=== PATIENT | female | born 1990 | race Caucasian/White ===

== ENCOUNTER → 2017-05-07 15:44 | Outpatient (CLI) | payer MEDICAID, SELFPAY ==
[2017-05-07 18:03] LABS: Absolute Lymphocyte Count 2.34 X10^3/ul (0.83-4.51); Absolute Neutrophil Count 7.7 X10^3/uL (2.0-7.7); Basophil# 0.02 X10^3/uL; Basophil% 0.2 % (0-1); Eosinophil# 0.08 X10^3/uL; Eosinophils% 0.7 % (0-5); Hematocrit 36.6 % (37-47); Hemoglobin 12.4 g/dl (12.0-15.0); Lymphocyte # 2.34 X10^3/ul (4.0); Lymphocyte % 21.2 % (19-41); Mean Corp Hgb Conc 33.9 g/gl (32-36); Mean Corpuscular Hgb 30.4 pg (27.0-32.0); Mean Corpuscular Volume 89.7 fL (81-99); Mean Platelet Vol. 10.7 fl (6.2-12.0); Monocyte# 0.86 X10^3/uL; Monocyte% 7.8 % (0-10); Neutrophil # 7.72 X10^3/uL (2.7-7.7); Neutrophil % 69.7 % (47-70); POSITIVE COUNT NO; POSITIVE DIFFERENTIAL NO; POSITIVE MORPHOLOGY NO; Platelet Count 238 K/mm3 (150-450); RBC Distribution Width CV 12.8 % (11.6-14.6); RBC Distribution Width SD 41.6 fl (35.1-43.9); Red Blood Count 4.08 M/mm3 (4.2-5.4); White Blood Count 11.1 K/mm3 (4.4-11.0)
[2017-05-07 18:39] LABS: Color, Urine Yellow (Yellow); Glucose, Dipstick Normal (Normal); Ketone-Dipstick Negative (Negative); Leukocyte Esterase-Dipstick 25 /ul (Negative); Nitrite-Dipstick Negative (Negative); Occult Blood-Urine 10 /ul (Negative); Protein-Dipstick Negative (Negative); Specific Gravity, Urine 1.015 (1.002-1.030); Urine Bilirubin Dipstick Negative (Negative); Urine Clarity Clear (Clear); Urine Urobilinogen Normal (Normal)
[2017-05-07 19:05] LABS: Thyroid Stim Hormone (TSH) 1.45 uIU/mL (0.358-3.74)
[2017-05-07 19:32] LABS: COTININE Drug Screen Positive (<200 ng/mL)
[2017-05-07 19:50] LABS: HIV - WCH Non-Reactive (Nonreactive); Rubella IgG 499.6 IU/mL
[2017-05-07 20:25] LABS: Chlamydia Trachomatis by PCR Negative (Negative); Neisserai gonorrhoeae by PCR Negative (Negative); Probe Check PASS; Sample Adequacy Control PASS; Specimen Processing Control PASS
[2017-05-07 20:43] LABS: Amphetamine Urine VISTA NEGATIVE (<1000 ng/mL); Barbiturate Urine VISTA NEGATIVE (< 200 ng/mL); Benzodiazepine Urine VISTA NEGATIVE (< 200 ng/mL); Cocaine Urine VISTA NEGATIVE (< 300 ng/mL); Ecstacy Urine VISTA NEGATIVE (< 500 ng/mL); Methadone Urine VISTA NEGATIVE (< 300 ng/mL); PCP Urine VISTA NEGATIVE (< 25 ng/mL); THC Urine VISTA NEGATIVE (< 50 ng/mL); Vista UDS pH Range 6
[2017-05-09 10:20] LABS: HEPATITIS B SURFACE AG Negative (Negative); Hep C Antibodies <0.1 s/co ratio (0.0-0.9)
[2017-05-11 01:51] LABS: Prenatal RPR NONREACTIVE (NONREACTIVE)
[2017-05-13 15:33] LABS: HPV Reflexed? NOT INDICATED
== END ==
PROVIDERS: Visit Provider Obstetrics & Gynecology
DX: Z34.82 Encounter for supervision of other normal pregnancy, second trimester (principal); Z12.4 Encounter for screening for malignant neoplasm of cervix; Z11.3 Encounter for screening for infections with a predominantly sexual mode of transmission
CPT/HCPCS: 36415; 80307; 81002; 84443; 85025; 86703; 86762; 86803; 86850; 87340; 87491; 87591; 88175; G0145

== ENCOUNTER → 2017-05-23 15:49 | Outpatient (CLI) | payer MEDICAID, SELFPAY ==
[2017-05-23 17:19] LABS: Hematocrit 35.1 % (37-47); Hemoglobin 12.3 g/dl (12.0-15.0); Mean Corpuscular Hgb 31.4 pg (27.0-32.0); Mean Corpuscular Volume 89.5 fL (81-99); Mean Platelet Vol. 10.7 fl (6.2-12.0); Platelet Count 243 K/mm3 (150-450); RBC Distribution Width CV 12.6 % (11.6-14.6); RBC Distribution Width SD 41.1 fl (35.1-43.9); Red Blood Count 3.92 M/mm3 (4.2-5.4); White Blood Count 12.2 K/mm3 (4.4-11.0)
[2017-05-23 17:20] LABS: Scan Indicated on CBC? Y/N NO
[2017-05-23 17:30] LABS: Glucose Challenge Gest 1H 50g 90 mg/dL (70-140)
== END ==
PROVIDERS: Visit Provider Obstetrics & Gynecology
DX: Z34.83 Encounter for supervision of other normal pregnancy, third trimester (principal)
CPT/HCPCS: 36415; 82950; 85027; 86850

== ENCOUNTER → 2017-06-18 17:34 | Outpatient (CLI) | payer MEDICAID, SELFPAY ==
[2017-06-18 23:57] LABS: Group B Strep DNA By PCR Negative (Negative); Internal Control PASS; Probe Check PASS; Specimen Processing Control PASS
== END ==
PROVIDERS: Visit Provider Obstetrics & Gynecology
DX: Z36.85 Encounter for antenatal screening for Streptococcus B (principal)
CPT/HCPCS: 87081; 87653

== ENCOUNTER 2017-07-13 21:30 | Inpatient (IN) | payer MEDICAID, SELFPAY ==
[2017-07-13] MEDS: Oxytocin 10 UNITS/ML Vial IM (21:35)
--- NOTE | 2017-07-13 21:47 | PCM.OB.VAG ---
Vaginal Delivery Maternal Presentation: Active Labor 39 5/7 wk EGA Amniotic Membrane Rupture Type: Spontaneous at home Final LADARIUS: 07/15/17 - Late PNC @ 32 wk Final LADARIUS Source: LMP Gestational age: 39 Weeks and 5 Days Date of Procedure: 07/13/17 Pre-Operative Diagnosis: 39 5/7 wk precipitous labor Post-Operative Diagnosis: Same Surgery/ Procedure Performed: Spontaneous Vaginal Delivery Type of Anesthesia: None Description of Procedure: Pt presents complete and pushing. Buttocks at introitus R sacrum posterior. Maternal expulsive efforts resulted in delivery of to knees. Legs reduced. Shoulders/arms reduced and vtx then delivered by maintaining flexion of neck. End stage mec noted. Cord clamped x two and cut Infant to ball racker , Dr. Cavanaugh, present for delivery. Baby with spont cry. Ap 11/30. Routine cord gases collected, and cord blood for typing. (Pt Rh Neg) PP exam; Abrasion at R anterior labia. No lacerations, no repair required. IM pitocin given. Placenta delivered by spont expulsion. 3V cord, normal appearing, intact with trailing membranes. EBL 200 cc Presentation: Complete Breech Placental Delivery Description: Spontaneous Placenta Disposition: [facility] Cord Vessel Description: 3 Vessels Cord Gases drawn per routine: ABG Cord Entanglement: None Estimated Blood Loss: 200 Infant A gender: Male (1 minute): 9 (5 minute): 9 Episiotomy Description: None Laceration: None Medications given after delivery: - - IM pitocin given. Complications: None
[2017-07-13 21:51] VITALS: BMI 28.8
--- NOTE | 2017-07-13 21:55 | OP.PCM_ITS ---
Vaginal Delivery Maternal Presentation: Active Labor 39 5/7 wk EGA Amniotic Membrane Rupture Type: Spontaneous at home Final LADARIUS: 07/15/17 - Late PNC @ 32 wk Final LADARIUS Source: LMP Gestational age: 39 Weeks and 5 Days Date of Procedure: 07/13/17 Pre-Operative Diagnosis: 39 5/7 wk precipitous labor Post-Operative Diagnosis: Same Surgery/ Procedure Performed: Spontaneous Vaginal Delivery Type of Anesthesia: None Description of Procedure: Pt presents complete and pushing. Buttocks at introitus R sacrum posterior. Maternal expulsive efforts resulted in delivery of to knees. Legs reduced. Shoulders/arms reduced and vtx then delivered by maintaining flexion of neck. End stage mec noted. Cord clamped x two and cut Infant to supervising fire marshal , Dr. Cavanaugh, present for delivery. Baby with spont cry. Ap 11/30. Routine cord gases collected, and cord blood for typing. (Pt Rh Neg) PP exam; Abrasion at R anterior labia. No lacerations, no repair required. IM pitocin given. Placenta delivered by spont expulsion. 3V cord, normal appearing, intact with trailing membranes. EBL 200 cc Presentation: Complete Breech Placental Delivery Description: Spontaneous Placenta Disposition: [facility] Cord Vessel Description: 3 Vessels Cord Gases drawn per routine: ABG Cord Entanglement: None Estimated Blood Loss: 200 Infant A gender: Male (1 minute): 9 (5 minute): 9 Episiotomy Description: None Laceration: None Medications given after delivery: - - IM pitocin given. Complications: None
--- NOTE | 2017-07-13 21:56 | DCINST_ITS ---
Discharge Diet: No Restrictions Discharge Activity: May not drive while taking narcotic pain medications., May Shower, May Take a Tub Bath Return to work on:: 08/25/17 May resume sexual activity in: 4-6 weeks Additional Activity Instructions:: Nothing in the vagina for 4-6 weeks. You may return to work/school in 6 weeks. Additional Instructions: If you experience any of the following, contact your healthcare provider. * Bleeding that soaks a pad every hour for 2 hours * Fever 100.4 or higher * Unrelieved abdominal pain * Problems urinating (including inability to urinate or burning while urinating) . * Visual changes * Severe headache * Flu-like symptoms * Pain or redness in one of both of your breasts * Pain, warmth, tenderness or swelling in your legs, especially the calf area * Frequent nausea and vomiting * Symptoms of depression or anxiety If you experience any of the following, call 911 or go to the nearest Emergency Room. * Chest pain * Problems breathing * Seizure activity * Partial or complete paralysis of a body part, slurred speech, weakness or drooping of the face, or a sudden inability to walk or hold your balance Allergies/Adverse Reactions: Allergies No Known Allergies Allergy (Verified 07/13/17 21:54) Medications to take at Discharge Oxycodone [Oxyir] 5 mg PO Q6H PRN PRN #15 tablet 04/22/14 Hydrocodone/Acetaminophen [Hydrocodon-Acetaminophen 5-325] Q6H PRN PRN 04/23/14 Orders to be completed after discharge: Electric breast pump Time Frame: 1 Year, Location: None Selected Please Follow Up With: Esa Reid MD - [phone] When: Call to make an appointment with your doctor in 6 weeks. Proposed Discharge Date: 07/15/17
[2017-07-13 22:36] LABS: Hematocrit 38.3 % (37-47); Hemoglobin 13.2 g/dl (12.0-15.0); Mean Corp Hgb Conc 34.5 g/gl (32-36); Mean Corpuscular Hgb 31.6 pg (27.0-32.0); Mean Corpuscular Volume 91.6 fL (81-99); Mean Platelet Vol. 10.7 fl (6.2-12.0); Platelet Count 236 K/mm3 (150-450); RBC Distribution Width CV 13.5 % (11.6-14.6); RBC Distribution Width SD 44.5 fl (35.1-43.9); Red Blood Count 4.18 M/mm3 (4.2-5.4); White Blood Count 23.5 K/mm3 (4.4-11.0)
[2017-07-13 22:37] LABS: Scan Indicated on CBC? Y/N NO
[2017-07-13] MEDS: Ibuprofen 600 MG Tablet PO (23:29)
[2017-07-14 01:36] LABS: Vista UDS pH Range 6
[2017-07-14 01:47] LABS: Amphetamine Urine VISTA NEGATIVE (<1000 ng/mL); Barbiturate Urine VISTA NEGATIVE (< 200 ng/mL); Benzodiazepine Urine VISTA NEGATIVE (< 200 ng/mL); Cocaine Urine VISTA NEGATIVE (< 300 ng/mL); Ecstacy Urine VISTA NEGATIVE (< 500 ng/mL); Methadone Urine VISTA NEGATIVE (< 300 ng/mL); PCP Urine VISTA NEGATIVE (< 25 ng/mL); THC Urine VISTA NEGATIVE (< 50 ng/mL)
[2017-07-14 04:42] VITALS: BP 118/65; PULSE 85; RESP 16; TEMP 36.7; O2SAT 97
--- NOTE | 2017-07-14 07:46 | PCM.PN.OB ---
Subjective: PPD#1 Breech vaginal delivery Doing well. Minimal pain, but is coming back. Hasn't taken anything recently for pain. Plans to bottle feed. Had planned to adopt baby out (private adoption) but now plans to keep baby. baby has had some issues with blood sugars. Objective: Lying in bed semirecumbent. Bottle feeding baby boy 6# 1 oz. wt per pt. - Physical Exam General: Alert, Oriented x3, Cooperative, No apparent distress HEENT: Atraumatic, EOMI Neck: Supple Abdomen: Soft, Non Tender Psych/Mental Status: Normal Affect Vital Signs Temp Pulse Resp BP Pulse Ox 98.1 F 85 16 118/65 97 07/14/17 04:42 07/14/17 04:42 07/14/17 04:42 07/14/17 04:42 07/14/17 04:42 Weight: 83.461 kg Body Mass Index (BMI) 28.8 Intake and Output for Last 24 Hours 07/12/17 07/13/17 07/14/17 23:59 23:59 23:59 Output Total 550 / 550 Balance -550 / -550 Laboratory Tests Past 24 Hrs 07/13/17 07/13/17 07/13/17 22:05 22:05 22:05 WBC 23.5 H RBC 4.18 L Hgb 13.2 Hct 38.3 MCV 91.6 MCH 31.6 MCHC 34.5 RDW 13.5 RDW Differential 44.5 H Plt Count 236 MPV 10.7 Urine Opiates Screen Urine Methadone Screen Ur Barbiturates Screen Ur Phencyclidine Scrn Ur Amphetamines Screen U Methamphetamin-MDMA U Benzodiazepines Scrn Urine Cocaine Screen U Cannabinoids Screen Ur Drug Screen Comment Blood Type O NEGATIVE Antibody Screen Not Reportable NEGATIVE Screen Baby's Blood Type Baby's EMETERIO 07/14/17 07/14/17 00:12 01:23 WBC RBC Hgb Hct MCV MCH MCHC RDW RDW Differential Plt Count MPV Urine Opiates Screen NEGATIVE Urine Methadone Screen NEGATIVE Ur Barbiturates Screen NEGATIVE Ur Phencyclidine Scrn NEGATIVE Ur Amphetamines Screen NEGATIVE U Methamphetamin-MDMA NEGATIVE U Benzodiazepines Scrn NEGATIVE Urine Cocaine Screen NEGATIVE U Cannabinoids Screen NEGATIVE Ur Drug Screen Comment Blood Type Antibody Screen Screen NEGATIVE Baby's Blood Type A POSITIVE Baby's EMETERIO NEGATIVE Medical Necessity - Tobacco Use Smoking Status: Heavy Smoker (>10/day) Assessment/Plan PPD#1 Breech Stable . continue routine care.
[2017-07-14 08:00] VITALS: BP 107/62; PULSE 83; RESP 18; TEMP 36.6; O2SAT 97
[2017-07-14 11:20] VITALS: BP 105/61; PULSE 79; RESP 18; TEMP 37.1; O2SAT 97
--- NOTE | 2017-07-14 13:22 | CASEMGMT ---
Social Work - Labor and Delivery Unit Consult received due to late care and original plan for adoption of , with the plan for adoption falling through recently. Per discussion with chief fundraising officer this morning, baby is to have EHSAN monitoring due to maternal use of percocet last week. Medical record reviewed. Noted that there was a social service consult placed at time of last delivery in 2014, due to maternal history of marijuana use in , but patient/mother of baby (MOB) left hospital without consult completed (order placed on a Friday evening and MOB left on Friday). Presented to MOB's room today for assessment. Knocked on door and the reported father of baby (FOB) Ricky Rutherford indicated that okay to enter. MOB sleeping soundly upon social media marketing specialist entering room and continued to sleep soundly, even with FOB calling MOB's name once. This screen writer agreed to come back later today to meet with MOB. Explained to FOB that can meet together and then at some point will need to talk to MOB privately. FOB polite during brief social work interaction, answering questions though responses brief. FOB reports came in late last evening for delivery, and so MOB's sleep has been on and off today (when social media marketing specialist inquired how long MOB has been sleeping, in trying to decide whether to allow MOB more time to sleep or whether to awaken). FOB working on feeding baby a bottle, staring at baby, FOB affect appearing constricted. During social work presence in room, MOB slept and did not stir or move. Plan: Will try to meet with MOB later today for assessment and resources. -ESTER Rushing, [employer] EQUIPMENT REPAIRER
[2017-07-14 16:13] VITALS: BP 113/72; PULSE 80; RESP 18; TEMP 36.7; O2SAT 98
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
[2017-07-14] MEDS: Ibuprofen 600 MG Tablet PO (16:43)
[2017-07-14 20:43] VITALS: BP 121/59; PULSE 80; RESP 18; TEMP 36.8; O2SAT 96
[2017-07-15 02:10] VITALS: BP 118/60; PULSE 78; RESP 18; TEMP 37.2
[2017-07-15 08:00] VITALS: BP 108/70; PULSE 65; RESP 18; TEMP 36.2; O2SAT 98
--- NOTE | 2017-07-15 08:23 | PCM.PN.OB ---
Subjective: PPD#2 Breech Doing well. Bottle feeding. Baby needs to stay (likely) for EHSAN score. Pt reports she took single dose of Percocet in last week of for her back pain. States baby was just given shots, etc and then scored high on EHSAN score. No concerns otherwise. wants her tubes tied, but didn't sign federal consent for tubal yet and had not discussed this with Dr. Reid during her . - Physical Exam General: Alert, Oriented x3, Cooperative, No apparent distress HEENT: Atraumatic Neck: Supple Abdomen: Soft - Fundus firm NT at 2-3 cm inferior to umbilicus Neurological: Cranial nerves II-XII grossly intact Psych/Mental Status: Normal Affect Vital Signs Temp Pulse Resp BP Pulse Ox 97.2 F L 65 18 108/70 98 07/15/17 08:00 07/15/17 08:00 07/15/17 08:00 07/15/17 08:00 07/15/17 08:00 Oxygen Delivery Method Room Air Weight: 83.461 kg Body Mass Index (BMI) 28.8 Intake and Output for Last 24 Hours 07/13/17 07/14/17 07/15/17 23:59 23:59 23:59 Output Total 550 / 550 Balance -550 / -550 Medical Necessity - Tobacco Use Smoking Status: Heavy Smoker (>10/day) Assessment/Plan PPD#2 Breech Stable . continue routine care. DIschg home later today. Baby may need to stay for EHSAN score. Wants bilateral tubal ligation. needs to sign federal consent for tubal and then wait 30 d mandatory until PP BTO may be performed. Will sign federal consent for tubal , then plan as interval procedure in 4-6 wk. Offered DepoProvera and OCP prior to dischg to bridge until BTO. Declines contraception for now. States conceived on OCP. Advised condoms IF sexually active at all prior to next ofc visit. RTO in 6 wk for pp check, prn sooner.
--- NOTE | 2017-07-15 12:59 | PCM.DCVAG ---
Discharge Diet: No Restrictions Discharge Activity: May not drive while taking narcotic pain medications., May Shower, May Take a Tub Bath Return to work on:: 08/25/17 May resume sexual activity in: 4-6 weeks Additional Activity Instructions:: Nothing in the vagina for 4-6 weeks. You may return to work/school in 6 weeks. Call your doctor if you observe: Fever of 101 or Higher Instructions: After a Vaginal , Understanding Depression Additional Instructions: If you experience any of the following, contact your healthcare provider. Bleeding that soaks a pad every hour for 2 hours Fever 100.4 or higher Unrelieved incision or abdominal pain Swelling, redness, discharge or bleeding from your incision or episiotomy site Your incision begins to separate Problems urinating (including inability to urinate or burning while urinating). Visual changes Severe headache Flu-like symptoms Pain or redness in one of both of your breasts Pain, warmth, tenderness or swelling in your legs, especially the calf area Frequent nausea and vomiting Symptoms of depression or anxiety If you experience any of the following, call 911 or go to the nearest Emergency Room. Chest pain Problems breathing Seizure activity Partial or complete paralysis of a body part, slurred speech, weakness or drooping of the face, or a sudden inability to walk or hold your balance Allergies/Adverse Reactions: Allergies acetaminophen [From Vicodin] Allergy (Verified 07/13/17 23:20) Nausea hydrocodone [From Vicodin] Allergy (Verified 07/13/17 23:20) Nausea tramadol Allergy (Verified 07/13/17 23:19) Itching Medications to take at Discharge [id number]/FA/Omega3/Dha/Fish Oil [ Gummies] 2 each PO DAILY 07/14/17 Orders to be completed after discharge: Electric breast pump Time Frame: 1 Year, Location: None Selected Proposed Discharge Date: 07/15/17
--- NOTE | 2017-07-15 13:00 | DCINST_ITS ---
Discharge Diet: No Restrictions Discharge Activity: May not drive while taking narcotic pain medications., May Shower, May Take a Tub Bath Return to work on:: 08/25/17 May resume sexual activity in: 4-6 weeks Additional Activity Instructions:: Nothing in the vagina for 4-6 weeks. You may return to work/school in 6 weeks. Call your doctor if you observe: Fever of 101 or Higher Instructions: After a Vaginal , Understanding Depression Additional Instructions: If you experience any of the following, contact your healthcare provider. * Bleeding that soaks a pad every hour for 2 hours * Fever 100.4 or higher * Unrelieved incision or abdominal pain * Swelling, redness, discharge or bleeding from your incision or episiotomy site * Your incision begins to separate * Problems urinating (including inability to urinate or burning while urinating) . * Visual changes * Severe headache * Flu-like symptoms * Pain or redness in one of both of your breasts * Pain, warmth, tenderness or swelling in your legs, especially the calf area * Frequent nausea and vomiting * Symptoms of depression or anxiety If you experience any of the following, call 911 or go to the nearest Emergency Room. * Chest pain * Problems breathing * Seizure activity * Partial or complete paralysis of a body part, slurred speech, weakness or drooping of the face, or a sudden inability to walk or hold your balance Allergies/Adverse Reactions: Allergies acetaminophen [From Vicodin] Allergy (Verified 07/13/17 23:20) Nausea hydrocodone [From Vicodin] Allergy (Verified 07/13/17 23:20) Nausea tramadol Allergy (Verified 07/13/17 23:19) Itching Medications to take at Discharge Neb075/FA/Omega3/Dha/Fish Oil [ Gummies] 2 each PO DAILY 07/14/17 Orders to be completed after discharge: Electric breast pump Time Frame: 1 Year, Location: None Selected Proposed Discharge Date: 07/15/17
[2017-07-15 14:20] VITALS: BP 102/57; PULSE 88; RESP 16; TEMP 37.1; O2SAT 97
--- NOTE | 2017-07-16 13:00 | CASEMGMT ---
Social Work Note Patient/mother of baby (MOB) previously discharged though baby remained in hospital until today for continued EHSAN monitoring. Spoke with MOB prior to baby's discharge. Detailed note in the baby's chart, linked to MOB's current visit number. See baby's chart for details, but of importance to note is that a referral made to [facility] due to risk factors present for dependency and wanting to increase support for this family at home going. No other services requested or indicated for MOB who has already been discharged. MOB was given community resource information prior to home going. -ESTER Rushing, [employer]S C[employer]OM [employer] PIECE CONSULTANT
== END 2017-07-15 18:15 | disposition home or self-care (01) | DRG 373 ==
PROVIDERS: Admitting Provider Obstetrics & Gynecology; Visit Provider Obstetrics & Gynecology
DX: O32.1XX0 Maternal care for breech presentation, not applicable or unspecified (principal); O62.3 Precipitate labor; O42.02 Full-term premature rupture of membranes, onset of labor within 24 hours of rupture; O09.33 Supervision of pregnancy with insufficient antenatal care, third trimester; O77.0 Labor and delivery complicated by meconium in amniotic fluid; O71.82 Other specified trauma to perineum and vulva; O99.89 Other specified diseases and conditions complicating pregnancy, childbirth and the puerperium; M41.9 Scoliosis, unspecified; O99.334 Smoking (tobacco) complicating childbirth; Z3A.39 39 weeks gestation of pregnancy; Z37.0 Single live birth
CPT/HCPCS: 59050; 80307; 85027; 85461; 86850; 86900; 90384; 99218; A4216; G0378; J2790

== ENCOUNTER → 2017-08-23 15:28 | Outpatient (CLI) | payer MEDICAID, SELFPAY ==
[2017-08-23 16:49] LABS: Pregnancy, Serum, hCG Quali. NEGATIVE Negative (0-9 Nonpreg)
== END ==
PROVIDERS: Visit Provider Obstetrics & Gynecology
DX: Z01.818 Encounter for other preprocedural examination (principal)
CPT/HCPCS: 36415; 84703; 86850; 86900; J2405

== ENCOUNTER 2017-08-25 06:58 | Day surgery (SDC) | payer MEDICAID, SELFPAY ==
--- NOTE | 2017-08-24 21:37 | HP.PCM_ITS ---
History and Physical Date of Admission: 08/25/17 Surgical History and Physical Esther Pierre, a 26 year old female 2 0 2 0 2, presents for L/S bilateral salpingectomy on August 25, 2017 at 8:30. -- Desires Permanaent Sterilization -- She has considered this form of control for quite some time. MEDICATIONS HISTORY: ALLERGIES: NKDA, Vicodin, Itching of skin, Tramadol and Nausea Infections - Chicken pox and has had one UTI 7 y ago. Illnesses - calcium deficency. In high school dx w bipolar- took self off meds 6 y ago, Accidents - None Hospitalizations - Childbirth and surgery Review of Systems: GENERAL - Denies fever, or chills SKIN - Denies skin changes EYES - Denies visual changes EARS - Denies difficulty hearing NOSE - Denies nasal congestion or bleeding MOUTH - Denies sore throat or difficulty swallowing NECK - Denies pain or swelling RESPIRATORY - Denies shortness of breath or wheezing CARDIOVASCULAR - Denies palpitations or chest pain GASTROINTESTINAL - Denies nausea, vomiting, diarrhea, constipation GENITOURINARY - Denies dysuria, frequency of urination, incontinence of urine MUSCULOSKELETAL - Denies joint or muscle pain NEUROLOGICAL - Denies localized numbness or weakness PSYCHIATRIC - Denies depression or anxiety ENDOCRINE - Denies heat or cold intolerance, weight loss or gain HEMATO-IMMUNOLOGIC - Denies excesive bleeding with cuts SOCIAL HISTORY: Alcohol Use - holidays not while Smoking - Smoker x 8 y. Currently 5-10 cigs daily. Using vap device. Diet - balanced Diet, caffeine > 2 drinks per day, Mt Dew about 2-3 20 oz bottles, 1 c coffee daily and Water intake 60 oz daily. 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 Paternal Grandfather: Bladder, Kidney and Lung Cancer. MENSTRUAL HISTORY: LMP Known?- DefiniteAmount/Duration - 3 days, Regularity - Regular, Frequency - monthly days, LMP - 02/10/17, Age Onset Menarche - 14 PAST PREGNANCIES: Total Pregnancies - 4; Full Term Pregnancies - 2; Premature - 0; Abortions, Induced - 0; Abortions, Spontaneous - 2; Ectopics - 0; Multiple Births - 0; Living Children - 2 SURGICAL HISTORY: 1. cholecystectomy, 2011 PHYSICAL EXAM BP- 90/60 Sitting, Right arm, regular cuff Weight- 172.58501 lbs Height- 67.00 inch BMI:27.00 CONSTITUTIONAL - NAD, well nourished, and well developed SKIN - No rash, lesions, or ulcers HEENT - Normocephalic, PERRLA, EOMI NECK - No nodes, no nuchal rigidity and thyroid normal size and texture LYMPH NODES - Palpation of lymph nodes in neck and groins within normal limits LUNGS - CTA x2 without wheezes, crackles or rales CARDIAC - Regular rate and rhythm without rubs, murmurs, or gallops ABDOMEN - Without hepatosplenomegaly, distention, masses, rebound, or guarding; normal bowel sounds; no hernias EXTREMITIES - No edema or calf tenderness NEUROLOGICAL - Cranial nerves II-XII grossly intact PSYCHIATRIC - A and O to time, place, person, mood and affect External Genitial Vagina - non-tender without lesions Urethra/Urethral Meatus - non-tender Bladder - non-tender Vagina - vaginal de jesus are pink and moist without loss of rugae and no evidence of atropy Cervix - without cervical motion tenderness and has normal size and features without evident lesions Uterus - enlarged uterus 15 wks and greater and positive FHTs noted Adnexa - clear without massess or tenderness ASSESSMENT/PLAN: Desires Permanent Sterilization. Plan LST with Filsche Clips and distal partial salpingectomy. Discussed RBAs of the procedure including the possiblity of bleeding, infection, injury to surrounding structures and the permanent nature of the procedure and she desires we proceed. Also discussed non permanent options such as LARCs and pt declines in favor of tubal.
--- NOTE | 2017-08-25 | FALS_PTH ---
PATIENT: BASILIO AVENDAÑO LOC: [facility] [place] U#:[id number] AGE/SX: 26/F ROOM: RE08/25/[address]: Dr. Esa Reid MD : [id number] BED: DIS: 08/25/2017 SPEC #: [id number] RECD: 08/25/17 11:30 STATUS: ANIL ALVAREZ #: [id number] SRINATH: 08/25/17 00:[address]: Esa Reid DEPT: SURGICAL PATHOLOGY RECD BY: Mina Pina ENTERED: 08/28/17 11:30 SP TYPE: FALL TUBES OTHR DR: No Primary Care Phys Tissues: Fallopian tube Procedures: Surgery Specimen Level II HEADER OPERATION: Bilateral laparoscopic salpingectomy PRE-OP DIAGNOSIS: Sterilization request TISSUE SUBMITTED: Bilateral fallopian tubes MICROSCOPIC DIAGNOSIS Right and left fallopian tubes, bilateral salpingectomies: Complete segments of fallopian tubes with no pathologic change. AM:erlinda 08/29/17 MICROSCOPIC DESCRIPTION Slides are reviewed. GROSS DESCRIPTION Received is one container labeled with the patient's name and designated bilateral fallopian tubes. The specimen consists of two fallopian tubes including fimbrial ends. The fallopian tubes are not identified as right or left. Each fallopian tube measures 6 cm in length and 0.6 cm in diameter. One of the fallopian tubes also shows a cyst measuring 0.4 cm in greatest dimension. Sill Worker sections are submitted in two cassettes with each cassette containing one fallopian tubes. Cassette 2 also contains the paratubal cyst. / BOOGIE:erlinda 08/22/17 TC:4 CPT: 32187 x2
--- NOTE | 2017-08-25 06:58 | DT_ITS ---
This patient was seen during an EMR downtime August 25, 2017 - September 01, 2017. This patient may have a combination of paper and electronic documentation or all paper documentation. All documentation is viewable within the e-chart portion of [facility] for each patient visit.
[2017-08-28 18:27] LABS: Internal QC Validated? YES +Cl - CLEAR BKGD; Pregnancy, Urine Negative Negative
== END 2017-08-25 12:25 | disposition home or self-care (01) ==
LOC: SDC 08-27 12:30
PROVIDERS: Visit Provider Obstetrics & Gynecology
PROC: (CPT 58661; principal; 2017-08-25 08:15)
DX: Z30.2 Encounter for sterilization (principal); F17.210 Nicotine dependence, cigarettes, uncomplicated; M41.9 Scoliosis, unspecified; K21.9 Gastro-esophageal reflux disease without esophagitis
CPT/HCPCS: 00851; 58615; 58661; 81025; 88302; J7120; C1760; J2405